=== PATIENT | male | born 1965 | race Caucasian/White ===

== ENCOUNTER 2022-07-28 10:59 | Inpatient (IN) ==
[2022-07-28] MEDS ORDERED: Bupivacaine 0.5% 50 ML MDV VIAL ONE (11:45)
[2022-07-28 12:10] LABS: ABS Eosinophils 0.1 10^3/ul (0-0.6); ABS Lymphocytes 1.1 10^3/ul (1.0-4.8); ABS Monocytes 0.9 10^3/ul (0-0.8); ABS Neutrophils 5.1 10^3/ul (1.5-7.7); Eosinophil % 1.1 %; Hematocrit 38 % (42-52); Hemoglobin 12.6 g/dL (14.0-18.0); Lymphocyte % 15.5 %; Mean Corpuscular HGB Conc 34 g/dL (31-36); Mean Corpuscular Hemoglobin 31 pg (27-31); Mean Corpuscular Volume 94 fL (80-94); Mean Platelet Volume 7.5 fL (7.4-10.4); Platelet Count 228 10^3/uL (150-450); Red Blood Count 4.03 10^6 /uL (4.18-5.48); Red Cell Distribution Width 14 % (10-15); White Blood Count 7.3 10^3/uL (3.5-10.8)
[2022-07-28 12:17] LABS: INR 1.16 (0.89-1.11)
[2022-07-28] MEDS ORDERED: Morphine 4 MG/ML VIAL (1 ml) IV ONE (12:17)
[2022-07-28] MEDS ORDERED: Ondansetron 4 mg VIAL 2 MG/ML 2 ml VIAL IV ONE (12:17)
[2022-07-28] MEDS ORDERED: fentaNYL 100 mcg/2 ml 50 MCG/ML VIAL ONE ×2 (12:18→14:38)
[2022-07-28] MEDS ORDERED: Midazolam 2 mg/2 ml VIAL 1 mg/ml 2 ml VIAL (2 mg) ONE (12:19)
[2022-07-28] MEDS ORDERED: Propofol 10 MG/ML 20 ML BTL ONE (12:19)
[2022-07-28] MEDS ORDERED: ceFAZolin 2 GM PREMIX 0 GM/0 ML BAG ONE (12:27)
[2022-07-28] MEDS ORDERED: ceFAZolin 2 GM in NS PREMIX 2 GM/100 ML BAG IVPB ONE (12:28)
[2022-07-28] MEDS ORDERED: Ondansetron 4 mg VIAL 2 MG/ML 2 ml VIAL ONE (13:33)
[2022-07-28] MEDS ORDERED: Dexamethasone IV 4 MG/ML VIAL 1 ml VIAL ONE (13:33)
[2022-07-28] MEDS ORDERED: Ondansetron 4 mg VIAL 2 MG/ML 2 ml VIAL IV PRN ×2 (14:23→14:35)
[2022-07-28] MEDS ORDERED: Lactulose 30 ml UDC PO PRN (14:23)
[2022-07-28] MEDS ORDERED: Morphine 2 MG/ML SYRINGE IV PRN (14:23)
[2022-07-28] MEDS ORDERED: Magnesium Hydroxide LIQ 30 ML UDC PO PRN (14:23)
[2022-07-28] MEDS ORDERED: Ondansetron ODT 4 mg TAB 4 MG TAB PO PRN (14:23)
[2022-07-28] MEDS ORDERED: Metoclopramide 5 MG/ML VIAL (10 mg) IV PRN (14:35)
[2022-07-28] MEDS ORDERED: HYDROcodone/ACETAMIN 5/325 mg TAB PO PRN (14:35)
[2022-07-28] MEDS ORDERED: fentaNYL 100 mcg/2 ml 50 MCG/ML VIAL IV PRN (14:35)
[2022-07-28] MEDS ORDERED: Naloxone 0.4 mg VIAL 0.4 mg/ml 1 ml VIAL IV PRN (14:35)
[2022-07-28] MEDS ORDERED: Lactated Ringers 1000 ml BAG 1,000 ML IV SCH (15:00)
[2022-07-28] MEDS ORDERED: Vancomycin per Pharmacy 1 EA NOTE FOLLOW UP SCH (15:00)
[2022-07-28] MEDS ORDERED: Nicotine PATCH 14 MG/24 HR PATCH ONE (15:35)
[2022-07-28] MEDS ORDERED: Vancomycin 1,250 MG IV x ONCE IVPB ONE (16:00)
[2022-07-28] MEDS: Nicotine PATCH 14 MG/24 HR PATCH TRANSDERM SCH (16:56)
[2022-07-28 17:46] LABS: eGFR CKD-EPI 101.3 (>60)
[2022-07-28] MEDS: Magnesium Hydroxide LIQ 30 ML UDC PO SCH (21:29)
[2022-07-29] MEDS: Vancomycin 1,250 MG in NS 0.9% 250 ml 250 ML IVPB SCH ×2 (02:52→15:32)
[2022-07-29 06:07] LABS: Hematocrit 39 % (42-52); Hemoglobin 13.1 g/dL (14.0-18.0); Mean Platelet Volume 8.5 fL (7.4-10.4); Platelet Count 268 10^3/uL (150-450)
[2022-07-29 06:31] LABS: Calcium 9.7 mg/dL (8.6-10.3); eGFR CKD-EPI 100.9 (>60)
[2022-07-29 06:33] LABS: Potassium 5.3 mmol/L (3.5-5.0)
[2022-07-29] MEDS ORDERED: SODIUM ZIRCONIUM CYCLOSILICATE 10 GM PACKET PO ONE (09:15)
[2022-07-29] MEDS: Nicotine PATCH 14 MG/24 HR PATCH TRANSDERM SCH (09:23)
[2022-07-29] MEDS: Vitamin THERAPEUTIC TAB PO SCH (09:24)
[2022-07-29] MEDS: Magnesium Hydroxide LIQ 30 ML UDC PO SCH ×2 (09:24→20:03)
[2022-07-29 14:30] LABS: Calcium 9.9 mg/dL (8.6-10.3); Potassium 4.9 mmol/L (3.5-5.0); eGFR CKD-EPI 104.7 (>60)
[2022-07-30] MEDS: Vancomycin 1,250 MG in NS 0.9% 250 ml 250 ML IVPB SCH ×2 (03:35→16:19)
[2022-07-30 06:52] LABS: Hematocrit 36 % (42-52); Hemoglobin 12.4 g/dL (14.0-18.0); Platelet Count 267 10^3/uL (150-450)
[2022-07-30 07:16] LABS: C Reactive Protein 69.36 mg/L (<8.01); Potassium 4.9 mmol/L (3.5-5.0); eGFR CKD-EPI 104.3 (>60)
[2022-07-30] MEDS: Nicotine PATCH 14 MG/24 HR PATCH TRANSDERM SCH (09:12)
[2022-07-30] MEDS: Magnesium Hydroxide LIQ 30 ML UDC PO SCH ×2 (09:12→21:05)
[2022-07-30] MEDS: Vitamin THERAPEUTIC TAB PO SCH (09:12)
[2022-07-30] MEDS ORDERED: Vancomycin Trough Check NOTE FOLLOW UP ONE (14:30)
[2022-07-31] MEDS: Vancomycin 1,250 MG in NS 0.9% 250 ml 250 ML IVPB SCH ×2 (03:20→17:43)
[2022-07-31 06:17] LABS: Hematocrit 38 % (42-52); Hemoglobin 12.8 g/dL (14.0-18.0); Mean Platelet Volume 7.5 fL (7.4-10.4); Platelet Count 291 10^3/uL (150-450)
[2022-07-31 07:00] LABS: C Reactive Protein 36.5 mg/L (<8.01); eGFR CKD-EPI 96.4 (>60)
[2022-07-31] MEDS: Magnesium Hydroxide LIQ 30 ML UDC PO SCH ×2 (08:14→19:59)
[2022-07-31] MEDS: Vitamin THERAPEUTIC TAB PO SCH (08:15)
[2022-07-31] MEDS: Nicotine PATCH 14 MG/24 HR PATCH TRANSDERM SCH (08:15)
[2022-08-01] MEDS: Vancomycin 1,250 MG in NS 0.9% 250 ml 250 ML IVPB SCH (03:10)
[2022-08-01 05:44] LABS: Hematocrit 42 % (42-52); Hemoglobin 14.2 g/dL (14.0-18.0); Mean Platelet Volume 7.2 fL (7.4-10.4); Platelet Count 334 10^3/uL (150-450)
[2022-08-01 06:03] LABS: C Reactive Protein 23.44 mg/L (<8.01); eGFR CKD-EPI 103.1 (>60)
[2022-08-01 07:34] VITALS: BP 106/62
[2022-08-01] MEDS: Vitamin THERAPEUTIC TAB PO SCH (08:12)
[2022-08-01] MEDS: Magnesium Hydroxide LIQ 30 ML UDC PO SCH (08:12)
[2022-08-01] MEDS: Nicotine PATCH 14 MG/24 HR PATCH TRANSDERM SCH (08:13)
[2022-08-01] MEDS ORDERED: Vancomycin Trough Check NOTE FOLLOW UP ONE (14:30)
== END 2022-08-01 10:00 | disposition home or self-care (01) | DRG 344 ==
LOC: ED 10:59 → OR 12:17 → SUATTDRO 15:31 → SSU 15:31
PROVIDERS: ADMIT Orthopaedic Surgery; ATTEND Orthopaedic Surgery